=== PATIENT | male | born 1975 | race Caucasian/White ===

== ENCOUNTER → 2018-09-06 | Outpatient (CLI) | payer OTHER ==
[~2018-09-06] MED LIST: ADDERALL 10 MG10 MG PO; LISINOPRIL20 MG PO; LOVASTATIN 20 M20 MG PO; NORCO 5-325 TA1 EACH PO; ONDANSETRON HCL4 M2 PO; PRILOSEC 20 MG20 MG PO; PROZAC20 MG PO; XANAX 0.5 MG0.5 MG PO
== END ==
LOC: CAT 10:44
DX: Z13.6 Encounter for screening for cardiovascular disorders (principal); E78.00 Pure hypercholesterolemia, unspecified; I25.10 Atherosclerotic heart disease of native coronary artery without angina pectoris